=== PATIENT | female | born 1970 | race African-American/Black ===

== ENCOUNTER 2017-12-26 18:12 | Emergency (ER) | payer OTHER, MEDICAID ==
[2017-12-26] MEDS ORDERED: DEXAMETHASONE 10 MG/ML VIAL PO STA (19:07)
[2017-12-26] MEDS ORDERED: MELOXICAM 7.5 MG TABLET PO STA (19:07)
--- NOTE | 2017-12-26 19:13 | ED Physician Documentation ---
History of Present Illness - Stated complaint Stated Complaint: R ARM PAIN - Chief complaint Chief Complaint: Ext Problem - History obtained from History obtained from: Patient - History of Present Illness Timing: Other (1 month) Pain level max: 7 Pain level now: 5 Improved by: rest Worsened by: using the arm - Additonal information Additional information: Patient is a 47-year-old right-handed female who presents to the emergency department with right elbow pain for the past month or so. Has been trying physical therapy tape for this without relief. Occasionally shoots down to the hand and has trouble gripping objects. 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 Has not taken anything for the pain. 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 - Past Surgical History Past Surgical History: Yes /DOCUMENT MANAGER: section - Present Medications Home Medications: Ambulatory Orders Medication Instructions Recorded Confirmed Meloxicam [Mobic] 15 mg PO DAILY PRN #20 tablet 12/26/17 - Allergies Allergies/Adverse Reactions: Allergies Allergy/AdvReac Type Severity Reaction Status Date / Time No Known Drug Allergies Allergy Verified 12/26/17 18:21 - Social History Does the pt smoke?: No Smoking Status: Never smoker Does the pt drink ETOH?: Yes Does the pt have substance abuse?: No PD ED PE NORMAL - Vitals Vital signs reviewed: Yes - General General: Alert and oriented X 3, No acute distress - Derm Derm: Warm and dry - Extremities Extremities: Other (Right elbow - Tender to palpation over the lateral condyle of the right elbow. No swelling. No erythema. Full range of motion present. Neurovascularly intact.) - Neuro Neuro: Alert and oriented X 3, No motor deficit, No sensory deficit Results - Vitals Vitals: Oxygen O2 Source Room air PD MEDICAL DECISION MAKING - ED course Complexity details: considered differential, d/w patient ED course: Patient is a 47-year-old female who presents to the emergency department with a history and physical exam consistent with lateral epicondylitis. We will treat her conservatively and have her follow-up with her doctor for further care. I will and I paperwork filled out. Patient counseled regarding signs and symptoms for which I believe and urgent re-evaluation would be necessary. Patient with good understanding of and agreement to plan and is comfortable going home at this time This document was made in part using voice recognition software. While efforts are made to proofread this document, sound alike and grammatical errors may occur. Departure - Departure Disposition: 01 Home, Self Care Clinical Impression: Epicondylitis, lateral Qualifiers: Laterality: right Qualified Code(s): M77.11 - Lateral epicondylitis, right elbow Condition: Good Instructions: ED Epicondylitis Lateral Elbow Follow-Up: Arianna Dietz ARNP [Primary Care Provider] - Within 1 week Prescriptions: Meloxicam [Mobic] 15 mg PO DAILY PRN #20 tablet PRN Reason: pain Comments: Return if you worsen. This should improve over the next week. You may need physical therapy for this as well. Forms: Activity restrictions Discharge Date/Time: 12/26/17 19:25
[2017-12-26 19:24] VITALS: BP 132/88
== END 2017-12-26 19:25 | disposition home or self-care (01) ==
LOC: ED 18:12
DX: M77.11 Lateral epicondylitis, right elbow (principal)
CPT/HCPCS: 99283; A9270

== ENCOUNTER 2019-10-25 09:05 | Outpatient (CLI) | payer MEDICAID, OTHER ==
[2019-10-25 12:26] LABS: BASOPHILS % (AUTO) 0.7 %; EOSINOPHILS % (AUTO) 0.9 %; LYMPHOCYTES # (AUTO) 1.2 10^3/uL (1.5-3.5); LYMPHOCYTES % (AUTO) 27.8 %; MEAN CORPUSCULAR HEMOGLOBIN 17.9 pg (27.0-31.0); MEAN CORPUSCULAR HGB CONC 26.1 g/dL (32.0-36.0); MEAN CORPUSCULAR VOLUME 68.7 fL (81.0-99.0); MONOCYTES # (AUTO) 0.4 10^3/uL (0.0-1.0); MONOCYTES % (AUTO) 8.4 %; NEUTROPHILS # (AUTO) 2.7 10^3/uL (1.5-6.6); PLT - PLATELET COUNT 276 10^3/uL (130-450); RED BLOOD COUNT 3.51 10^6/uL (4.20-5.40); RED CELL DISTRIBUTION WIDTH 18.8 % (12.0-15.0); WHITE BLOOD COUNT 4.3 x10^3/uL (4.8-10.8)
[2019-10-25 12:36] LABS: HB2 TOTAL 6.6 g/dL; HEMOGLOBIN A1C 0.33 g/dL; HEMOGLOBIN A1C % 6.7 % (4.6-6.2)
[2019-10-25 12:42] LABS: ALBUMIN 4.2 g/dL (3.2-5.5); ALBUMIN/GLOBULIN RATIO 1.2 (1.0-2.2); ALKALINE PHOSPHATASE 67 IU/L (42-121); ALT ALANINE AMINOTRANSFERASE 27 IU/L (10-60); AST ASPARTATE AMINOTRANSFERASE 25 IU/L (10-42); BILIRUBIN,TOTAL 0.5 mg/dL (0.2-1.0); BUN - BLOOD UREA NITROGEN 11 mg/dL (6-20); CALCIUM 9.1 mg/dL (8.5-10.3); CARBON DIOXIDE - CO2 23 mmol/L (21-32); CHLORIDE 107 mmol/L (101-111); CHOL/HDL RATIO 1.6 (<4.4); CHOLESTEROL 124 mg/dL; CREATININE 0.5 mg/dL (0.4-1.0); GFR - MDRD 158 (>89); GLUCOSE 87 mg/dL (70-100); HDL CHOLESTEROL 77 mg/dL; LDL CHOLESTEROL,CALCULATED 38 mg/dL; LDL/HDL RATIO 0.5 (<4.4); SODIUM 139 mmol/L (135-145); TOTAL PROTEIN 7.6 g/dL (6.7-8.2); VLDL CHOLESTEROL 9 mg/dL
[2019-10-25 12:54] LABS: HGB - HEMOGLOBIN 6.3 g/dL (12.0-16.0); RBC MORPHOLOGY (MULTIPLE) 3+ ANISOCYTOSIS (NORMAL)
== END 2019-10-25 23:59 | disposition home or self-care (01) ==
LOC: LAB.N 09:05
PROVIDERS: ATTEND Family Medicine
DX: Z00.00 Encounter for general adult medical examination without abnormal findings (principal)
CPT/HCPCS: 36415; 80053; 80061; 83036; 83721; 84443; 85025

== ENCOUNTER 2019-10-25 13:41 | Emergency (ER) | payer MEDICAID, OTHER ==
[2019-10-25 14:45] LABS: BASOPHILS % (AUTO) 0.4 %; EOSINOPHILS # (AUTO) 0.1 10^3/uL (0.0-0.7); EOSINOPHILS % (AUTO) 1.1 %; LYMPHOCYTES # (AUTO) 1.4 10^3/uL (1.5-3.5); MEAN CORPUSCULAR HEMOGLOBIN 17.9 pg (27.0-31.0); MEAN CORPUSCULAR HGB CONC 26.6 g/dL (32.0-36.0); MEAN CORPUSCULAR VOLUME 67.5 fL (81.0-99.0); MEAN PLATELET VOLUME 10.2 fL (7.9-10.8); MONOCYTES # (AUTO) 0.4 10^3/uL (0.0-1.0); MONOCYTES % (AUTO) 9.3 %; NEUTROPHILS # (AUTO) 2.7 10^3/uL (1.5-6.6); PLT - PLATELET COUNT 252 10^3/uL (130-450); RED BLOOD COUNT 3.51 10^6/uL (4.20-5.40); RED CELL DISTRIBUTION WIDTH 18.7 % (12.0-15.0); WHITE BLOOD COUNT 4.5 x10^3/uL (4.8-10.8)
[2019-10-25 14:49] LABS: HGB - HEMOGLOBIN 6.3 g/dL (12.0-16.0)
[2019-10-25 14:51] LABS: INR 1.2 (0.8-1.2); PT - PROTHROMBIN TIME 13.4 secs (9.9-12.6)
[2019-10-25 15:04] LABS: ALBUMIN 4.2 g/dL (3.2-5.5); ALBUMIN/GLOBULIN RATIO 1.2 (1.0-2.2); BILIRUBIN,TOTAL 0.6 mg/dL (0.2-1.0); CALCIUM 9.2 mg/dL (8.5-10.3); CREATININE 0.6 mg/dL (0.4-1.0); TOTAL PROTEIN 7.8 g/dL (6.7-8.2)
[2019-10-25 15:09] LABS: BILIRUBIN,URINE NEGATIVE (NEGATIVE); GLUCOSE, URINE (UA) NEGATIVE (NEGATIVE); KETONES,URINE (UA) NEGATIVE (NEGATIVE); LEUKOCYTE ESTERASE, URINE NEGATIVE (NEGATIVE); NITRITE,URINE NEGATIVE (NEGATIVE); OCCULT BLOOD,URINE NEGATIVE (NEGATIVE); PROTEIN,URINE NEGATIVE (NEGATIVE); UROBILINOGEN,URINE 0.2 (NORMAL) E.U./dL (NORMAL)
[2019-10-25 15:18] LABS: CLARITY,URINE CLEAR (CLEAR)
--- NOTE | 2019-10-25 15:35 | ED Physician Documentation ---
History of Present Illness - Stated complaint Stated Complaint: ABNORMAL LABS - Chief complaint Chief Complaint: General - History obtained from History obtained from: Patient - History of Present Illness Timing: Unknown - Additonal information Additional information: Patient comes emergency department because her doctor told her her red blood cells were very low. She states she has not had any symptoms to indicate this. She states she has not been lightheaded, short of breath, or having chest pain. She states that she has not noticed a significant change in her color. Patient has been going through menopause for the past few years, and has had heavy, frequentPeriods. She states that she has tried eating red meat and previously has taken iron supplements. She also cooks on a cast iron skillet. She states that she has not had any laboratory studies done in about 3 years, until her physician took blood This week. She states she received a phone call this morning, stating that she needed to come to the emergency department. Patient denies any complaints at this time. No abdominal pain. No nausea or vomiting. She states that she did get quite constipated when she was on the red meat diet, and developed hemorrhoids which bled only a small bit. She states that after this cleared up, she did notice that she had some darker stoolsShe denies any history of ulcers or gastritis. No vomiting blood. Patient states that she has not had any menstrual bleeding, other than a small amount of brownish discharge, since last week. No other complaints at this time. She has never had to have a transfusion before. Review of Systems Ten Systems: 10 systems reviewed and negative Constitutional: reports: Reviewed and negative Eyes: reports: Reviewed and negative Ears: reports: Reviewed and negative Nose: reports: Reviewed and negative Throat: reports: Reviewed and negative Cardiac: reports: Reviewed and negative Respiratory: reports: Reviewed and negative GI: reports: Reviewed and negative : reports: Vaginal bleeding Skin: reports: Reviewed and negative Musculoskeletal: reports: Reviewed and negative Neurologic: reports: Reviewed and negative Psychiatric: reports: Reviewed and negative Endocrine: reports: Reviewed and negative Immunocompromised: reports: Reviewed and negative PD PAST MEDICAL HISTORY - Past Medical History Past Medical History: No Cardiovascular: None Respiratory: None 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 : None HEENT: None - Past Surgical History Past Surgical History: Yes /SALES REPRESENTATIVE TRAINEE: section - Present Medications Home Medications: Ambulatory Orders Medication Instructions Recorded Confirmed Meloxicam [Mobic] 15 mg PO DAILY PRN #20 tablet 12/26/17 - Allergies Allergies/Adverse Reactions: Allergies Allergy/AdvReac Type Severity Reaction Status Date / Time No Known Drug Allergies Allergy Verified 12/26/17 18:21 - Social History Does the pt smoke?: No Smoking Status: Never smoker Does the pt drink ETOH?: Yes Does the pt have substance abuse?: No PD ED PE NORMAL - Vitals Vital signs reviewed: Yes - General General: Alert and oriented X 3, No acute distress - HEENT HEENT: PERRL - Neck Neck: Supple, no meningeal sign - Cardiac Cardiac: RRR, No murmur - Respiratory Respiratory: Clear bilaterally - Abdomen Abdomen: Soft, Non tender, Non distended - Rectal Rectal: Other (Patient has good rectal tone. No gross blood in her rectal vault. Minimal stool is noted, but no melena.) - Derm Derm: Warm and dry - Extremities Extremities: No deformity - Neuro Neuro: Alert and oriented X 3 - Psych Psych: Normal mood, Normal affect Results - Vitals Vitals: Vital Signs - 24 hr 10/25/19 10/25/19 10/25/19 13:52 15:40 16:28 Temperature 36.8 C 37.1 C Heart Rate 92 73 74 Respiratory 16 16 18 Rate Blood Pressure 133/69 H 121/59 L 129/75 O2 Saturation 100 100 100 10/25/19 10/25/19 10/25/19 17:34 18:12 18:26 Temperature 37 C 36.8 C Heart Rate 64 71 72 Respiratory 18 18 16 Rate Blood Pressure 109/64 119/74 129/67 O2 Saturation 100 10/25/19 10/25/19 10/25/19 19:13 19:41 19:57 Temperature 37.2 C 37.3 C Heart Rate 64 71 77 Respiratory 18 16 16 Rate Blood Pressure 108/62 117/66 117/66 O2 Saturation 99 10/25/19 20:12 Temperature 37.2 C Heart Rate 74 Respiratory 16 Rate Blood Pressure 108/59 L O2 Saturation Oxygen O2 Source Room air - Labs Labs: Microbiology 10/25/19 18:20 Occult Blood - Final Stool Laboratory Tests 10/25/19 10/25/19 10/25/19 14:32 14:32 14:32 WBC 4.5 L RBC 3.51 L Hgb 6.3 L* Hct 23.7 L MCV 67.5 L MCH 17.9 L MCHC 26.6 L RDW 18.7 H Plt Count 252 MPV 10.2 Neut # (Auto) 2.7 Lymph # (Auto) 1.4 L [place] # (Auto) 0.4 Eos # (Auto) 0.1 Baso # (Auto) 0.0 Absolute Nucleated RBC 0.00 Nucleated RBC % 0.0 PT 13.4 H INR 1.2 Sodium Potassium Chloride Carbon Dioxide Anion Gap BUN Creatinine Estimated GFR (MDRD) Glucose Calcium Total Bilirubin AST ALT Alkaline Phosphatase Total Protein Albumin Globulin Albumin/Globulin Ratio Lipase Urine Color Urine Clarity Urine pH Ur Specific [place] Urine Protein Urine Glucose (UA) Urine Ketones Urine Occult Blood Urine Nitrite Urine Bilirubin Urine Urobilinogen Ur Leukocyte Esterase Ur Microscopic Review Urine Culture Comments Blood Type O POSITIVE Blood Type Recheck Antibody Screen NEGATIVE Crossmatch IS Only See Detail 10/25/19 10/25/19 10/25/19 14:32 14:50 15:43 WBC RBC Hgb Hct MCV MCH MCHC RDW Plt Count MPV Neut # (Auto) Lymph # (Auto) [place] # (Auto) Eos # (Auto) Baso # (Auto) Absolute Nucleated RBC Nucleated RBC % PT INR Sodium 136 Potassium 3.3 L Chloride 105 Carbon Dioxide 24 Anion Gap 7.0 BUN 11 Creatinine 0.6 Estimated GFR (MDRD) 128 Glucose 95 Calcium 9.2 Total Bilirubin 0.6 AST 22 ALT 27 Alkaline Phosphatase 65 Total Protein 7.8 Albumin 4.2 Globulin 3.6 Albumin/Globulin Ratio 1.2 Lipase 28 Urine Color YELLOW Urine Clarity CLEAR Urine pH 6.0 Ur Specific [place] 1.010 Urine Protein NEGATIVE Urine Glucose (UA) NEGATIVE Urine Ketones NEGATIVE Urine Occult Blood NEGATIVE Urine Nitrite NEGATIVE Urine Bilirubin NEGATIVE Urine Urobilinogen 0.2 (NORMAL) Ur Leukocyte Esterase NEGATIVE Ur Microscopic Review NOT INDICATED Urine Culture Comments NOT INDICATED Blood Type Blood Type Recheck O POSITIVE Antibody Screen Crossmatch IS Only PD MEDICAL DECISION MAKING - ED course Complexity details: reviewed old records, reviewed results, re-evaluated patient, considered differential, d/w patient, d/w family ED course: Patient was worked up with labs. IV was placed and transfusion was prepared, as patient's hemoglobin was found to be 6.3 in the emergency department.She was given 2 units of packed red blood cells in the emergency department. The patient remained hemodynamically stable, and had been asymptomatic throughout her stay in the emergency department. Furthermore, she was not currently bleeding. I did discuss with her the importance of following up with her CHILD LIFE THERAPIST to discuss further management of her menorrhagia and associated anemia. We have discussed home management of the symptoms, as well as usual indications for return Departure - Departure Disposition: 01 Home, Self Care Clinical Impression: Severe anemia Condition: Good Instructions: Anemia Comments: Your hemoglobin today was found to be 6.3 in the emergency department. For this, you have been given 2 units of packed red blood cells, which should bring your hemoglobin up to just over 10. It is very important that you follow-up with your CHILD LIFE THERAPIST to discuss options for your menorrhagia and anemia. Please continue to try to optimize your iron intake. Also, it is very important to stay fluid hydrated. If you begin to feel lightheaded or dizzy, or you develop chest pain or shortness of breath, please return to the emergency department immediately.
[2019-10-25 21:20] VITALS: BP 121/58
== END 2019-10-25 21:39 | disposition home or self-care (01) ==
LOC: ED 13:41
DX: Z00.00 Encounter for general adult medical examination without abnormal findings (principal); D64.9 Anemia, unspecified
CPT/HCPCS: 36415; 36430; 80053; 80061; 81003; 82272; 83036; 83690; 84443; 85025; 85610; 86850; 86900; 86901; 86920; 99284; 99285; P9016; 81001; 87086

== ENCOUNTER 2019-10-26 10:11 | Outpatient (CLI) | payer MEDICAID ==
--- NOTE | 2019-11-06 14:36 | Mammography Report ---
Reason: ROUTINE MAMMO Procedure Date: 10/26/2019 Accession Number: [id number] / [id number] Procedure: MGN - Screening Mammo w/Emilio CPT Code: Final Report FULL RESULT: EXAM: Screening Mammo w/Emilio DATE: 10/26/2019 10:44 AM CLINICAL HISTORY: Screening encounter. Family history of breast cancer in the mother at the age of 70. TECHNIQUE: (B) - Bilateral CC and MLO views were obtained. COMPARISON: None PARENCHYMAL PATTERN: (D) - The breast(s) demonstrate(s) heterogeneously dense fibroglandular parenchyma. FINDINGS: There are no suspicious masses, calcifications, or areas of distortion. IMPRESSION: Negative examination. BI-RADS category 1. RECOMMENDATION: (ANNUAL) - Recommend routine annual screening mammography. BI-RADS CATEGORY: (1) - Negative. STANDARD QUALIFYING STATEMENTS: 1. This examination was not reviewed with the aid of Computer-Aided Detection (CAD). 2. A negative or benign imaging report should not preclude biopsy if clinically suspicious findings are present. 3. Dense breasts may obscure an underlying neoplasm. 4. This examination was reviewed with the aid of 3D breast imaging (tomosynthesis).
== END 2019-10-26 10:12 | disposition home or self-care (01) ==
LOC: DI.N 10:11
DX: Z12.31 Encounter for screening mammogram for malignant neoplasm of breast (principal); Z80.3 Family history of malignant neoplasm of breast
CPT/HCPCS: 77063; 77067

== ENCOUNTER 2020-03-12 08:00 | Outpatient (CLI) | payer MEDICAID | END 2020-03-12 23:59 | disposition home or self-care (01) | LOC: LAB.R 08:00 | PROVIDERS: ATTEND Family Medicine | DX: J06.9 Acute upper respiratory infection, unspecified (principal) ==

== ENCOUNTER 2020-08-20 08:00 | Outpatient (CLI) | payer MEDICAID ==
[2020-08-20 11:55] LABS: BASOPHILS % (AUTO) 0.7 %; EOSINOPHILS # (AUTO) 0.1 10^3/uL (0.0-0.7); EOSINOPHILS % (AUTO) 2.2 %; LYMPHOCYTES # (AUTO) 1.4 10^3/uL (1.5-3.5); LYMPHOCYTES % (AUTO) 32.8 %; MEAN CORPUSCULAR HEMOGLOBIN 19.5 pg (27.0-31.0); MEAN CORPUSCULAR HGB CONC 26.3 g/dL (32.0-36.0); MEAN CORPUSCULAR VOLUME 74.3 fL (81.0-99.0); MEAN PLATELET VOLUME 11.5 fL (7.9-10.8); MONOCYTES # (AUTO) 0.3 10^3/uL (0.0-1.0); MONOCYTES % (AUTO) 7.3 %; NEUTROPHILS # (AUTO) 2.3 10^3/uL (1.5-6.6); NEUTROPHILS % (AUTO) 56.8 %; PLT - PLATELET COUNT 331 10^3/uL (130-450); RED BLOOD COUNT 3.38 10^6/uL (4.20-5.40); RED CELL DISTRIBUTION WIDTH 16.9 % (12.0-15.0); WHITE BLOOD COUNT 4.1 x10^3/uL (4.8-10.8)
[2020-08-20 12:06] LABS: HGB - HEMOGLOBIN 6.6 g/dL (12.0-16.0)
[2020-08-20 12:27] LABS: PLATELET ESTIMATE, MANUAL NORMAL (130-450,000) (NORMAL); PLATELET MORPHOLOGY NORMAL APPEARANCE (NORMAL)
[2020-08-20 12:34] LABS: CALCIUM 9.4 mg/dL (8.5-10.3); CREATININE 0.6 mg/dL (0.4-1.0)
== END 2020-08-20 23:59 | disposition home or self-care (01) ==
LOC: LAB.N 08:00
PROVIDERS: ATTEND Physician Assistant Medical
DX: R53.83 Other fatigue (principal)
CPT/HCPCS: 36415; 80048; 84443; 85025

== ENCOUNTER 2020-08-20 08:00 | Outpatient (CLI) | payer MEDICAID | END 2020-08-20 23:59 | disposition home or self-care (01) | LOC: LAB.N 08:00 | PROVIDERS: ATTEND Physician Assistant Medical | DX: R53.83 Other fatigue (principal); R07.0 Pain in throat; Z20.828 Contact with and (suspected) exposure to other viral communicable diseases ==

== ENCOUNTER 2020-08-20 09:00 | Outpatient (CLI) | payer MEDICAID | END 2020-08-20 23:59 | disposition home or self-care (01) | LOC: LAB.R 09:00 | PROVIDERS: ATTEND Physician Assistant Medical | DX: R53.83 Other fatigue (principal); R07.0 Pain in throat | CPT/HCPCS: 87070 ==

== ENCOUNTER 2020-08-20 12:56 | Emergency (ER) | payer MEDICAID ==
--- NOTE | 2020-08-20 14:22 | ED Physician Documentation ---
History of Present Illness - Stated complaint Stated Complaint: INFUSION/COVID EXPOSURE - Chief complaint Chief Complaint: Abd Pain - Additonal information Additional information: 50-year-old female sent to the emergency department by her primary care provider to receive a packed red blood cell infusion. She reports that she has a history of a uterine fibroid and has been bleeding now for 28 days. On average she is using 6-7 pads or tampons a day. Over the last 2 weeks she endorses feeling faint and lightheaded with occasional palpitations after exertion. She has in the past declined hormone therapy for her dysfunctional uterine bleeding as she is afraid of cancer risk. She is a non-smoker. 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 She was told recently that some gas had tested positive for COVID-19. She did have a COVID-19 screening as an outpatient at the clinic this morning. Results are pending. Review of Systems Constitutional: reports: Reviewed and negative Eyes: reports: Reviewed and negative Ears: reports: Reviewed and negative Nose: reports: Reviewed and negative Throat: reports: Reviewed and negative Cardiac: reports: Palpitations. denies: Chest pain / pressure, Pedal edema, Calf pain Respiratory: denies: Dyspnea, Cough GI: denies: Abdominal Pain, Nausea, Vomiting : reports: Vaginal bleeding (28 days). 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 : None HEENT: None - Past Surgical History Past Surgical History: Yes /CORK GRINDER: section - Present Medications Home Medications: Ambulatory Orders Medication Instructions Recorded Confirmed Meloxicam [Mobic] 15 mg PO DAILY PRN #20 tablet 12/26/17 - Allergies Allergies/Adverse Reactions: Allergies Allergy/AdvReac Type Severity Reaction Status Date / Time No Known Drug Allergies Allergy Verified 08/20/20 13:09 - Social History Does the pt smoke?: No Smoking Status: Never smoker Does the pt drink ETOH?: Yes Does the pt have substance abuse?: No - Immunizations Immunizations are current?: No - POLST Patient has POLST: No PD ED PE EXPANDED - General General: Alert, No acute distress, Well developed/nourished - Cardiac Cardiac: Regular Rate, Regular Rhythm, Radial strong equal, Pedal strong equal, Cap refill < 2 sec. No: Murmur Present - Respiratory Respiratory: Clear to ausultation joshua. No: Distress, Labored - Abdomen Abdomen: Normal Bowel sounds. No: Tender to palpation - Derm Derm: Normal color. No: Pale, Rash - Extremities Extremities: Normal. No: Deformity, Tenderness - Neuro Neuro: Alert and Oriented X 3, CNII-XII intact - GCS Eye Opening: Spontaneous Motor: Obeys Commands Verbal: Oriented Total: 15 Results - Vitals Vitals: Vital Signs - 24 hr 08/20/20 08/20/20 08/20/20 13:09 15:12 15:56 Temperature 37 C 36.7 C Heart Rate 90 74 76 Respiratory 18 13 17 Rate Blood Pressure 134/64 H 138/71 H 145/83 H O2 Saturation 100 99 08/20/20 08/20/20 08/20/20 16:01 16:37 17:20 Temperature 36.7 C 36.4 C L Heart Rate 71 79 70 Respiratory 13 14 16 Rate Blood Pressure 136/74 H 122/79 119/75 O2 Saturation 100 08/20/20 08/20/20 18:37 18:54 Temperature 37.1 C 36.9 C Heart Rate 69 99 Respiratory 18 15 Rate Blood Pressure 117/76 O2 Saturation Oxygen O2 Source Room air - Labs Labs: Laboratory Tests 08/20/20 08/20/20 08/20/20 14:17 14:17 14:17 WBC 4.5 L RBC 3.34 L Hgb 6.5 L* Hct 24.6 L MCV 73.7 L MCH 19.5 L MCHC 26.4 L RDW 16.9 H Plt Count 360 MPV 11.2 H Neut # (Auto) 2.6 Lymph # (Auto) 1.5 [place] # (Auto) 0.4 Eos # (Auto) 0.1 Baso # (Auto) 0.0 Absolute Nucleated RBC 0.00 Nucleated RBC % 0.0 Sodium 137 Potassium 4.1 Chloride 105 Carbon Dioxide 26 Anion Gap 6.0 BUN 12 Creatinine 0.6 Estimated GFR (MDRD) 128 Glucose 88 Calcium 9.6 Total Bilirubin 0.3 AST 17 ALT 19 Alkaline Phosphatase 83 Total Protein 7.2 Albumin 4.2 Globulin 3.0 Albumin/Globulin Ratio 1.4 Lipase 29 Serum HCG, Qual Blood Type O POSITIVE Antibody Screen NEGATIVE Crossmatch IS Only See Detail 08/20/20 14:17 WBC RBC Hgb Hct MCV MCH MCHC RDW Plt Count MPV Neut # (Auto) Lymph # (Auto) [place] # (Auto) Eos # (Auto) Baso # (Auto) Absolute Nucleated RBC Nucleated RBC % Sodium Potassium Chloride Carbon Dioxide Anion Gap BUN Creatinine Estimated GFR (MDRD) Glucose Calcium Total Bilirubin AST ALT Alkaline Phosphatase Total Protein Albumin Globulin Albumin/Globulin Ratio Lipase Serum HCG, Qual NEGATIVE Blood Type Antibody Screen Crossmatch IS Only - Rads (name of study) pelvic US Radiology: Final report received (Normal-appearing uterus except for presence of 2 moderately large fibroids. The largest fibroid measures up to 5 cm. The right ovary appears normal but the left ovary could not be seen due to bowel gas.), Other PD MEDICAL DECISION MAKING - ED course Complexity details: reviewed results, re-evaluated patient, considered differential, d/w patient ED course: 50-year-old female presents the emergency department for a blood transfusion on the advice of her primary care provider. She does have a history of bleeding fibroids and was seen in this ER for similar in September 2019. Unfortunately she has not yet followed up with [facility]. A pelvic ultrasound today does show 2 large fibroids, likely the source of her bleeding. I did discuss with the patient possible hormone therapy to be initiated here in the emergency department but she declined. Her hemoglobin is noted to be 6.5. She was given 2 units of PRBCs. Following this she was discharged from the emergency department. She did remain hemodynamically stable throughout her stay here. I have advised her to have very close follow-up with the OB department for further evaluation of these fibroids and to determine appropriate management. Departure - Departure Disposition: Home, Self Care Clinical Impression: DUB (dysfunctional uterine bleeding) Uterine fibroid Qualifiers: Uterine leiomyoma location: unspecified location Qualified Code(s): D25.9 - Leiomyoma of uterus, unspecified Anemia Qualifiers: Anemia type: unspecified type Qualified Code(s): D64.9 - Anemia, unspecified Condition: Stable Record reviewed to determine appropriate education?: Yes Instructions: ED Fibroids Follow-Up: [facility] [Provider Group] Comments: You were seen in the emergency department today for prolonged vaginal bleeding and anemia. You were given 2 units of packed red blood cells. The pelvic ultrasound does show that you have 2 large fibroids in your uterus. This is most likely the cause of your prolonged bleeding. I would like you to call the OB department tomorrow to discuss this ED visit. Please arrange follow-up with then senior net application developer as soon as possible. Long-term treatment of your fibroids can include hormone therapy or sometimes a discussion of surgery. If at any point you have severe vaginal bleeding, feel that you are developing faintness or weakness again, have heart rate greater than 120 at rest or feel that your symptoms are not improving please return immediately to the emergency department
[2020-08-20 14:37] LABS: BASOPHILS % (AUTO) 0.9 %; EOSINOPHILS # (AUTO) 0.1 10^3/uL (0.0-0.7); EOSINOPHILS % (AUTO) 1.3 %; LYMPHOCYTES # (AUTO) 1.5 10^3/uL (1.5-3.5); LYMPHOCYTES % (AUTO) 32.2 %; MEAN CORPUSCULAR HEMOGLOBIN 19.5 pg (27.0-31.0); MEAN CORPUSCULAR HGB CONC 26.4 g/dL (32.0-36.0); MEAN CORPUSCULAR VOLUME 73.7 fL (81.0-99.0); MEAN PLATELET VOLUME 11.2 fL (7.9-10.8); MONOCYTES # (AUTO) 0.4 10^3/uL (0.0-1.0); MONOCYTES % (AUTO) 8.4 %; NEUTROPHILS # (AUTO) 2.6 10^3/uL (1.5-6.6); PLT - PLATELET COUNT 360 10^3/uL (130-450); RED BLOOD COUNT 3.34 10^6/uL (4.20-5.40); RED CELL DISTRIBUTION WIDTH 16.9 % (12.0-15.0); WHITE BLOOD COUNT 4.5 x10^3/uL (4.8-10.8)
[2020-08-20 14:39] LABS: HGB - HEMOGLOBIN 6.5 g/dL (12.0-16.0)
[2020-08-20 14:50] LABS: ALBUMIN 4.2 g/dL (3.2-5.5); ALBUMIN/GLOBULIN RATIO 1.4 (1.0-2.2); BILIRUBIN,TOTAL 0.3 mg/dL (0.2-1.0); CALCIUM 9.6 mg/dL (8.5-10.3); CREATININE 0.6 mg/dL (0.4-1.0); TOTAL PROTEIN 7.2 g/dL (6.7-8.2)
[2020-08-20 14:58] LABS: HCG,QUALITATIVE BLOOD NEGATIVE
--- NOTE | 2020-08-20 15:50 | Ultrasound Report ---
PROCEDURE: Pelvic w/Transvaginal INDICATIONS: ? bleeding fibroid; 28 days TECHNIQUE: Real-time scanning was performed of the pelvic organs, with image documentation. Additional endovagi nal scanning was necessary due to incomplete visualization of the adnexal and endometrial structures by transabdominal scanning. COMPARISON: None. FINDINGS: Transabdominal scanning: Limited scanning through the kidneys shows no hydronephrosis. No pathologi c free abdominal or pelvic fluid. Endovaginal scanning: Uterus: Uterus is normal in size at 6.8 x 8.0 x 10.1 cm. The endometrium measures 10.0 mm in combin ed thickness. Scattered uterine fibroids appear present, on the right anteriorly measuring up to 4.1 x 3.9 x 3.6 cm, within the intramural space. A left-sided posterior intramural fibroid measures up t o 4.7 x 4.1 x 5.1 cm. Several scattered nabothian cysts are noted. Ovaries: The right ovary measures 2.7 x 1.7 x 2.5 cm and the left ovary is not seen due to overlying bowel gas. IMPRESSION: Normal-appearing uterus except for presence of 2 moderately large fibroids. The largest fibroid measu res up to 5.1 cm. The right ovary appears normal but the left ovary could not be seen due to bowel ga s. Reviewed by: Kevin Santos MD on 08/20/2020 3:49 PM PST Approved by: Kevin Santos MD on 08/20/2020 3:49 PM PST Station ID: [id number]
[2020-08-20 20:30] VITALS: BP 127/80
== END 2020-08-20 20:30 | disposition home or self-care (01) ==
LOC: ED 12:56
DX: N93.8 Other specified abnormal uterine and vaginal bleeding (principal); D25.1 Intramural leiomyoma of uterus; D64.9 Anemia, unspecified
CPT/HCPCS: 36415; 36430; 76830; 76856; 80053; 83690; 84703; 85025; 86850; 86900; 86901; 86920; 99284; 99285; P9016

== ENCOUNTER 2020-08-27 10:59 | Outpatient (CLI) | payer MEDICAID ==
[2020-08-27 18:01] LABS: BASOPHILS % (AUTO) 0.5 %; EOSINOPHILS # (AUTO) 0.1 10^3/uL (0.0-0.7); EOSINOPHILS % (AUTO) 1.6 %; HCT - HEMATOCRIT 29.9 % (37.0-47.0); HGB - HEMOGLOBIN 8.5 g/dL (12.0-16.0); LYMPHOCYTES # (AUTO) 0.9 10^3/uL (1.5-3.5); LYMPHOCYTES % (AUTO) 23.8 %; MEAN CORPUSCULAR HEMOGLOBIN 22.8 pg (27.0-31.0); MEAN CORPUSCULAR HGB CONC 28.4 g/dL (32.0-36.0); MEAN CORPUSCULAR VOLUME 80.2 fL (81.0-99.0); MONOCYTES # (AUTO) 0.3 10^3/uL (0.0-1.0); MONOCYTES % (AUTO) 6.5 %; NEUTROPHILS # (AUTO) 2.6 10^3/uL (1.5-6.6); NEUTROPHILS % (AUTO) 67.6 %; PLT - PLATELET COUNT 231 10^3/uL (130-450); RED BLOOD COUNT 3.73 10^6/uL (4.20-5.40); RED CELL DISTRIBUTION WIDTH 20.4 % (12.0-15.0); WHITE BLOOD COUNT 3.9 x10^3/uL (4.8-10.8)
[2020-08-27 18:06] LABS: SLIDE REVIEW? Indicated
[2020-08-27 18:20] LABS: % IRON SATURATION 4 % (20-50); CHOLESTEROL 130 mg/dL; HDL CHOLESTEROL 64 mg/dL; IRON 20 ug/dL (28-170); LDL CHOLESTEROL,CALCULATED 51 mg/dL; LDL/HDL RATIO 0.8 (<4.4); TOTAL IRON BINDING CAPACITY 466 ug/dL (250-450); TRANSFERRIN 333 mg/dL (192-382); TRIGLYCERIDES 76 mg/dL; VLDL CHOLESTEROL 15 mg/dL
[2020-08-27 18:28] LABS: PLATELET ESTIMATE, MANUAL NORMAL (130-450,000) (NORMAL)
[2020-08-27 18:33] LABS: FERRITIN 4.5 ng/mL (11.0-306.8)
[2020-08-27 18:37] LABS: FOLATE 13.78 ng/mL (5.90 - >24.8)
== END 2020-08-27 23:59 | disposition home or self-care (01) ==
LOC: LAB.WCP 10:59
PROVIDERS: ATTEND Physician Assistant Medical
DX: Z00.00 Encounter for general adult medical examination without abnormal findings (principal); D50.8 Other iron deficiency anemias; N93.9 Abnormal uterine and vaginal bleeding, unspecified
CPT/HCPCS: 36415; 80061; 82607; 82728; 82746; 83540; 83721; 84466; 84702; 85025

== ENCOUNTER 2021-11-20 08:04 | Emergency (ER) | payer MEDICAID ==
--- NOTE | 2021-11-20 08:19 | ED Physician Documentation ---
PD HPI DYSPNEA - Stated complaint Stated Complaint: SENT FOR TRANSFUSION - Chief complaint Chief Complaint: Abd Pain - History obtained from History obtained from: Patient - History of Present Illness Timing - onset: How many weeks ago (Has had heavier vaginal bleeding for 3 weeks with a pad every few hours for the past several days to a week. history of anemia chronic and is on iron supplement.) Timing - onset during: Other (some lightheaded today, but also started SSRI last night. Otherwise noting general fatigue the past few weeks. Seen in Clinic yesterday in [place] and called this morning to come to ER as blood count very low.) Timing - details: Gradual onset, Still present Inciting event(s): Other (prolonged vaginal bleeding. states has not seen SHEET METAL INSULATOR for couple of years due to pandemic and office restrictions/insurance.) Improved by: Rest Worsened by: Exertion (lightheaded and fatigue with activity.) Associated symptoms: No: Fever, Cough, Wheezing Similar symptoms before: Diagnosis (vag bleeding and anemia due to fibroid.) Recently seen: Clinic Review of Systems Constitutional: denies: Fever, Chills Nose: denies: Rhinorrhea / runny nose, Congestion Throat: denies: Sore throat Respiratory: denies: Cough GI: reports: Abdominal Pain (intermittent cramping uterus area.). denies: Nausea, Vomiting, Bloody / black stool : reports: Vaginal bleeding, Irregular menses Neurologic: reports: Generalized weakness. 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 At the time SHEET METAL INSULATOR was deferring laparoscopic surgery. She had been on some oral contraceptive short-term with some improvement. irregular and heavy periods chronically. ) : None HEENT: None Other Past Medical History: chronic anemia, appears iron deficiency on prior labs, due to irregular menses detention. - Past Surgical History Past Surgical History: Yes /SHEET METAL INSULATOR: section - Present Medications Home Medications: Ambulatory Orders Medication Instructions Recorded Confirmed Meloxicam [Mobic] 15 mg PO DAILY PRN #20 tablet 12/26/17 Ferrous Gluconate 324 mg PO BID #60 tablet 11/20/21 Norethindrone Acetate 10 mg PO DAILY 5 Days #10 tablet 11/20/21 Tranexamic Acid 1,300 mg PO TID 5 Days #30 tablet 11/20/21 - Allergies Allergies/Adverse Reactions: Allergies Allergy/AdvReac Type Severity Reaction Status Date / Time acetaminophen [From Percocet] Allergy Respiratory Verified 11/20/21 08:13 latex Allergy Respiratory Verified 11/20/21 08:13 oxycodone Allergy Respiratory Verified 11/20/21 08:13 - Social History Does the pt smoke?: No Smoking Status: Never smoker Does the pt drink ETOH?: Yes Does the pt have substance abuse?: No - Immunizations Immunizations are current?: No - POLST Patient has POLST: No PD ED PE NORMAL - Vitals Vital signs reviewed: Yes - General General: Alert and oriented X 3, No acute distress, Well developed/nourished - HEENT HEENT: Other (modertely pale mucosa) - Neck Neck: Supple, no meningeal sign, No adenopathy - Cardiac Cardiac: RRR, No murmur - Respiratory Respiratory: Clear bilaterally - Abdomen Abdomen: Normal bowel sounds, Soft, Non tender, Non distended, No organomegaly - Female Female : Deferred - Rectal Rectal: Deferred - Back Back: No CVA TTP - Derm Derm: Normal color, Warm and dry - Extremities Extremities: No deformity, No edema - Neuro Neuro: Alert and oriented X 3, No motor deficit, Normal speech Results - Vitals Vitals: Vital Signs - 24 hr 11/20/21 11/20/21 11/20/21 08:07 08:34 10:12 Temperature 36.2 C L 36.6 C Heart Rate 96 80 80 Respiratory 16 16 16 Rate Blood Pressure 145/66 H 127/77 132/80 H O2 Saturation 99 99 98 11/20/21 11/20/21 11/20/21 10:40 10:45 10:55 Temperature 36.6 C 36.9 C 36.4 C L Heart Rate 80 74 75 Respiratory 16 14 16 Rate Blood Pressure 132/80 H 127/80 125/76 O2 Saturation 11/20/21 11/20/21 11/20/21 12:00 13:12 14:00 Temperature 36.7 C 36.7 C 36.8 C Heart Rate 72 68 75 Respiratory 14 16 16 Rate Blood Pressure 128/80 129/74 145/80 H O2 Saturation 96 100 Oxygen O2 Source Room air - Labs Labs: Laboratory Tests 11/20/21 11/20/21 11/20/21 08:24 08:24 08:24 WBC 6.4 RBC 2.54 L Hgb 5.9 L* Hct 21.4 L MCV 84.3 MCH 23.2 L MCHC 27.6 L RDW 29.3 H Plt Count 320 MPV 11.6 H Neut # (Auto) 4.5 Lymph # (Auto) 1.[address] [place] # (Auto) 0.4 Eos # (Auto) 0.1 Baso # (Auto) 0.0 Absolute Nucleated RBC 0.04 Nucleated RBC % 0.6 Manual Slide Review Indicated Platelet Estimate NORMAL (130-450,000) Platelet Morphology NORMAL APPEARANCE RBC Morph Micro Appear 3+ ANISOCYTOSIS Sodium 138 Potassium 3.6 Chloride 102 Carbon Dioxide 24 Anion Gap 12.0 BUN 11 Creatinine 0.7 Estimated GFR (MDRD) 107 Glucose 100 Calcium 8.6 Iron 19 L TIBC 462 H % Saturation 4 L Transferrin 330 Total Bilirubin 0.4 AST 17 ALT 14 Alkaline Phosphatase 60 Total Protein 7.0 Albumin 4.0 Globulin 3.0 Albumin/Globulin Ratio 1.3 Lipase 28 Vitamin B12 Folate Blood Type O POSITIVE Antibody Screen NEGATIVE Crossmatch IS Only See Detail 11/20/21 11/20/21 08:24 13:33 WBC RBC Hgb 7.4 L Hct 25.5 L MCV MCH MCHC RDW Plt Count MPV Neut # (Auto) Lymph # (Auto) [place] # (Auto) Eos # (Auto) Baso # (Auto) Absolute Nucleated RBC Nucleated RBC % Manual Slide Review Platelet Estimate Platelet Morphology RBC Morph Micro Appear Sodium Potassium Chloride Carbon Dioxide Anion Gap BUN Creatinine Estimated GFR (MDRD) Glucose Calcium Iron TIBC % Saturation Transferrin Total Bilirubin AST ALT Alkaline Phosphatase Total Protein Albumin Globulin Albumin/Globulin Ratio Lipase Vitamin B12 633 Folate 13.11 Blood Type Antibody Screen Crossmatch IS Only - Rads (name of study) pelvic U/S Radiology: Prelim report reviewed (fibroids largest 6.2 cm, enlarged from prior exam. Right ovarian cyst. ), See rad report PD MEDICAL DECISION MAKING - ED course Complexity details: reviewed results (fibroids, without other structural abnormal. ), re-evaluated patient (Repeat blood count after 1 unit of blood is now 7.4 hemoglobin so is adequately elevated and does not need further transfusion.), considered differential (She is anemic from ongoing vaginal bleeding. Can give transfusion of 1 unit and recheck blood count per transfusion guidelines. Will give TXA and progesterone to help decrease bleeding.), d/w funeral pre need consultant (SHEET METAL INSULATOR on line csr, Alexandru, who suggested TXA, Norinthendrone, and follow up next week. ) Departure - Departure Disposition: 01 Home, Self Care Clinical Impression: Vaginal bleeding, Uterine fibroid Anemia Qualifiers: Anemia type: iron deficiency Iron deficiency anemia type: chronic blood loss Qualified Code(s): D50.0 - Iron deficiency anemia secondary to blood loss (chronic) Condition: Stable Record reviewed to determine appropriate education?: Yes Instructions: ED Bleed Irregular Vaginal Follow-Up: Billie Horvath DO [Provider Admit Priv/Credential] - Prescriptions: Ferrous Gluconate 324 mg PO BID #60 tablet Norethindrone Acetate 10 mg PO DAILY 5 Days #10 tablet Tranexamic Acid 1,300 mg PO TID 5 Days #30 tablet Comments: Your repeat blood count is now above 7 (now is 7.4). Continue with your iron supplements twice daily. I wrote a prescription for more. I did talk with the on-call gelatin powder mixer who wants to see you next week. Call today for an appointment and let them know you are seen in the ER and the gelatin powder mixer does want to see you for sure in the short-term follow-up. The gelatin powder mixer also recommended treatment with tranexamic acid 3 times daily for the next 5 days and no hormone norethindrone 10 mg daily for the next 5 days. Return to the ER if increased bleeding, general weakness or fevers, increased abdominal pain or other concerns. Otherwise follow-up with gynecology next week. I transmitted your prescription to [facility] in [place]. Discharge Date/Time: 11/20/21 14:43
[2021-11-20 08:44] LABS: BASOPHILS % (AUTO) 0.5 %; EOSINOPHILS # (AUTO) 0.1 10^3/uL (0.0-0.7); EOSINOPHILS % (AUTO) 1.9 %; HCT - HEMATOCRIT 21.4 % (37.0-47.0); LYMPHOCYTES # (AUTO) 1.3 10^3/uL (1.5-3.5); LYMPHOCYTES % (AUTO) 19.7 %; MEAN CORPUSCULAR HEMOGLOBIN 23.2 pg (27.0-31.0); MEAN CORPUSCULAR HGB CONC 27.6 g/dL (32.0-36.0); MEAN CORPUSCULAR VOLUME 84.3 fL (81.0-99.0); MEAN PLATELET VOLUME 11.6 fL (7.9-10.8); MONOCYTES # (AUTO) 0.4 10^3/uL (0.0-1.0); MONOCYTES % (AUTO) 6.4 %; NEUTROPHILS # (AUTO) 4.5 10^3/uL (1.5-6.6); NEUTROPHILS % (AUTO) 70.4 %; NRBC ABSOLUTE COUNT (AUTO) 0.04 x10^3/uL; NUCLEATED RED BLOOD CELLS AUTO 0.6 /100WBC; PLT - PLATELET COUNT 320 10^3/uL (130-450); RED BLOOD COUNT 2.54 10^6/uL (4.20-5.40); RED CELL DISTRIBUTION WIDTH 29.3 % (12.0-15.0); WHITE BLOOD COUNT 6.4 x10^3/uL (4.8-10.8)
[2021-11-20 08:47] LABS: HGB - HEMOGLOBIN 5.9 g/dL (12.0-16.0); SLIDE REVIEW? Indicated
[2021-11-20 09:05] LABS: ALBUMIN/GLOBULIN RATIO 1.3 (1.0-2.2); BILIRUBIN,TOTAL 0.4 mg/dL (0.2-1.0); CALCIUM 8.6 mg/dL (8.5-10.3); CREATININE 0.7 mg/dL (0.4-1.0); POTASSIUM 3.6 mmol/L (3.5-5.0)
[2021-11-20 09:10] LABS: PLATELET ESTIMATE, MANUAL NORMAL (130-450,000) (NORMAL); PLATELET MORPHOLOGY NORMAL APPEARANCE (NORMAL)
[2021-11-20 09:19] LABS: FOLATE 13.11 ng/mL (5.90 - >24.8)
[2021-11-20] MEDS: TRANEXAMIC ACID 1,000 MG in SODIUM CHLORIDE 0.9% 100ML 100 ML IV STA (09:50)
--- NOTE | 2021-11-20 10:21 | Ultrasound Report ---
PROCEDURE: Pelvic w/Transvag+Doppler Comp INDICATIONS: excess vag bleeding; h/o fibroid TECHNIQUE: Real-time scanning was performed of the pelvic organs, with image documentation. Additional endovagi nal scanning was necessary due to incomplete visualization of the adnexal and endometrial structures by transabdominal scanning. Doppler interrogation was performed of the ovaries bilaterally. COMPARISON: Pelvic ultrasound 08/20/2020. FINDINGS: No pathologic free abdominal or pelvic fluid. Uterus: Uterus is enlarged, measuring 13.9 x 7.3 x 2.8 cm. The uterus is anteverted with a coarsened echotexture due to the presence of multiple fibroids. The endometrium measures 9 mm in combined thic kness. A medial left posterior intramural and submucosal fibroid (approximately 25% submucosal) measu res 5.9 x 4.3 x 6.2 cm (previously 4.7 x 4.1 x 5.1 cm). A right anterior intramural fibroid measures 3.8 x 2.8 x 3.8 cm (previously 4.1 x 3.9 x 3.6 cm). Nabothian cysts are noted in the cervix. Ovaries: Right ovary measures 2.3 x 1.6 x 1.6 cm (3.1 cc). A simple cyst or dominant follicle measure s up to 1.6 cm in maximum dimension. The left ovary measures 2.8 x 1.4 x 1.7 cm (3.4 cc). Normal appe aring arterial and venous waveforms are confirmed to each ovary.] IMPRESSION: 1.Uterus is enlarged by multiple fibroids. 2.A posterior 6.2 cm intramural and submucosal fibroid has increased in size when compared to the ult rasound from 08/20/2020. 3.Right ovarian simple cyst or follicle measures 1.6 cm in maximum dimension trauma with may be akua l in premenopausal woman. Recommend correlation with menopausal status. Reviewed by: Jaret Lamb MD on 11/20/2021 9:20 AM JOSE Approved by: Jaret Lamb MD on 11/20/2021 9:20 AM JOSE Station ID: [id number]
[2021-11-20 13:39] LABS: HCT - HEMATOCRIT 25.5 % (37.0-47.0); HGB - HEMOGLOBIN 7.4 g/dL (12.0-16.0)
[2021-11-20 14:05] VITALS: BP 145/80
== END 2021-11-20 14:43 | disposition home or self-care (01) ==
LOC: ED 08:04
DX: D25.9 Leiomyoma of uterus, unspecified (principal); D50.0 Iron deficiency anemia secondary to blood loss (chronic)
CPT/HCPCS: 36415; 36430; 76830; 76856; 80053; 82607; 82746; 83540; 83690; 84466; 85014; 85018; 85025; 86850; 86900; 86901; 86920; 93975; 96365; 99284; 99285; A9270; P9016

== ENCOUNTER 2022-05-17 22:21 | Emergency (ER) | payer MEDICAID ==
--- NOTE | 2022-05-17 22:31 | ED Physician Documentation ---
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 Rash is diffuse on trunk (abdomen, chest, back) as well as BUE. Denies dyspnea, denies keely/intraoral swelling or sensation of constriction. Denies h/o similar symptoms. She had shrimp tonight for dinner shortly before the rash started, but has had shrimp many times before without problems. 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 : None HEENT: None - Past Surgical History Past Surgical History: Yes /DRUM PULLER: section - Present Medications Home Medications: Ambulatory Orders Medication Instructions Recorded Confirmed Meloxicam [Mobic] 15 mg PO DAILY PRN #20 tablet 12/26/17 Ferrous Gluconate 324 mg PO BID #60 tablet 11/20/21 Norethindrone Acetate 10 mg PO DAILY 5 Days #10 tablet 11/20/21 Tranexamic Acid 1,300 mg PO TID 5 Days #30 tablet 11/20/21 - Allergies Allergies/Adverse Reactions: Allergies Allergy/AdvReac Type Severity Reaction Status Date / Time acetaminophen [From Percocet] Allergy Respiratory Verified 05/17/22 22:29 latex Allergy Respiratory Verified 05/17/22 22:29 oxycodone Allergy Respiratory Verified 05/17/22 22:29 - Social History Does the pt smoke?: No Smoking Status: Never smoker Does the pt drink ETOH?: Yes Does the pt have substance abuse?: No - Immunizations Immunizations are current?: No - POLST Patient has POLST: No PD ED PE NORMAL - Vitals Vital signs reviewed: Yes - General General: Alert and oriented X 3, No acute distress, Well developed/nourished - HEENT HEENT: Pharynx benign (no perioral nor intraoral swelling (lips, tongue, posterior o/p)) - Respiratory Respiratory: No respiratory distress, Clear bilaterally PD ED PE EXPANDED - Derm Derm: Urticaria (diffuse over abdomen and back with confluence; more scattered lesions (without confluence) BUE, predominantly proximally. No rash on head/neck. Few scattered lesions proximal BLE) Results - Vitals Vitals: Vital Signs - 24 hr 05/17/22 23:49 Temperature 36.6 C Heart Rate 77 Respiratory 16 Rate Blood Pressure 149/87 H O2 Saturation 98 Oxygen O2 Source Room air PD MEDICAL DECISION MAKING - ED course Complexity details: re-evaluated patient, considered differential, d/w patient ED course: given 25mg IM diphenhydramine, 10mg PO decadron, and 20mg PO pepcid. On reevaluation, the rash has resolved. Patient is asymptomatic (except some drowsiness appropriate for the IM benadryl). Return precautions discussed. Departure - Departure Disposition: 01 Home, Self Care Clinical Impression: Allergic urticaria Condition: Good Instructions: ED Urticaria Comments: You were given benadryl, a one-time dose of steroid (decadron), and pepcid in the ER and your symptoms have resolved. If the symptoms (itchy rash) reoccurs, take benadryl as per label instructions. If the benadryl alone is ineffective in controlling your symptoms, or if you develop new concerning signs/symptoms (such as difficulty breathing, chest tightness/constriction, swelling of lips, tongue, throat), return to the emergency department for reevaluation. Discharge Date/Time: 05/17/22 23:53
[2022-05-17] MEDS ORDERED: diphenhydrAMINE INJ 50 MG/ML VIAL IM STA (22:36)
[2022-05-17] MEDS ORDERED: FAMOTIDINE 20 MG TABLET PO STA (22:53)
[2022-05-17] MEDS ORDERED: CHERRY SYRUP 10 ML UDC PO ONE (22:53)
[2022-05-17] MEDS ORDERED: DEXAMETHASONE 10 MG/ML VIAL PO STA (22:53)
[2022-05-17 23:50] VITALS: BP 149/87
== END 2022-05-17 23:53 | disposition home or self-care (01) ==
LOC: ED 22:21
DX: L50.9 Urticaria, unspecified (principal)
CPT/HCPCS: 96372; 99282; 99283; A9270; J1200

== ENCOUNTER 2023-01-10 13:34 | Outpatient (CLI) | payer MEDICAID ==
--- NOTE | 2023-01-10 15:36 | XRAY Report ---
PROCEDURE: Wrist 3 View RT INDICATIONS: DEQUERVAINS TENOSYNOVITIS TECHNIQUE: 3 views of the wrist were acquired. COMPARISON: None. FINDINGS: Bones: No displaced fracture. No dislocation. Nonaggressive appearing mild sclerosis at the distal ra dius. Soft tissues: No suspicious calcifications. IMPRESSION: No acute osseous abnormality. If there is high concern for further derangement, consider MRI or ultra sound evaluation for reported tendinous pathology. Reviewed by: Jam Gilliland MD on 01/10/2023 3:34 PM PDT Approved by: Jam Gilliland MD on 01/10/2023 3:34 PM PDT Station ID: [id number]
== END 2023-01-10 23:59 | disposition home or self-care (01) ==
LOC: DI.N 13:34
PROVIDERS: ATTEND Physician Assistant Medical
DX: M65.4 Radial styloid tenosynovitis [de Quervain] (principal)

== ENCOUNTER 2023-04-14 18:56 | Outpatient (CLI) | payer MEDICAID ==
--- NOTE | 2023-04-15 15:15 | XRAY Report ---
PROCEDURE: Toe(s) LT INDICATIONS: PAIN IN LEFT TOE(S) TECHNIQUE: 3 views of the 4th toe(s) acquired. COMPARISON: None. FINDINGS: The lateral view is suboptimal. Bones: No fractures or dislocations. No suspicious bony lesions. Soft tissues: No suspicious soft tissue densities. IMPRESSION: 1. No definitive abnormality. The lateral view is suboptimal. If clinical symptoms persist, consider a follow-up exam in 7-10 days. Reviewed by: Yoli Kim MD on 04/15/2023 3:13 PM PDT Approved by: Yoli Kim MD on 04/15/2023 3:13 PM PDT Station ID: [id number]
== END 2023-04-14 18:57 | disposition home or self-care (01) ==
LOC: DI 18:56
PROVIDERS: ATTEND Registered Nurse
DX: M79.675 Pain in left toe(s) (principal)
CPT/HCPCS: 73660

== ENCOUNTER 2023-11-20 20:16 | Emergency (ER) | payer MEDICAID ==
[2023-11-20 20:38] VITALS: BP 167/102; O2SAT 100
[2023-11-20] MEDS: predniSONE 20 MG TABLET PO STA (20:47)
--- NOTE | 2023-11-20 20:59 | ED Physician Documentation ---
History of Present Illness - Stated complaint Stated Complaint: POSS ALLERGIC REACTION - Chief complaint Chief Complaint: Allergic Rx - History obtained from History obtained from: Patient - History of Present Illness Timing: Today Pain level max: 0 Pain level now: 0 - Additonal information Additional information: Patient is a 53-year-old female who presents to the emergency department complaint of a allergic reaction to shrimp. She states that last time she ate shrimp she had allergic reaction causing lip tingling and swelling. She states that she was not sure if it was a true allergic reaction or not so she decided to try shrimp again today. After eating the shrimp her lips began to tingle and turn red. Took 50 mg of Benadryl prior to arrival. No difficulty speaking or swallowing. No difficulty breathing. No rash. Feels generally itchy, but states she is feeling better. Ingestion occurred about 90 minutes prior to arrival. No history of anaphylaxis. 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 : None HEENT: None - Past Surgical History Past Surgical History: Yes /BEVERAGE SALES CONSULTANT: section - Present Medications Home Medications: Ambulatory Orders Medication Instructions Recorded Confirmed EPINEPHrine [Epinephrine] 0.3 mg IJ ONCE PRN #1 each 11/20/23 predniSONE [Deltasone] 40 mg PO DAILY #10 tablet 11/20/23 - Allergies Allergies/Adverse Reactions: Allergies Allergy/AdvReac Type Severity Reaction Status Date / Time acetaminophen [From Percocet] Allergy Respiratory Verified 05/17/22 22:29 latex Allergy Respiratory Verified 05/17/22 22:29 oxycodone Allergy Respiratory Verified 05/17/22 22:29 shellfish derived Allergy Itching Verified 11/20/23 20:34 - Social History Does the pt smoke?: No Smoking Status: Never smoker Does the pt drink ETOH?: Yes Does the pt have substance abuse?: No - Immunizations Immunizations are current?: No - POLST Patient has POLST: No PD ED PE NORMAL - Vitals Vital signs reviewed: Yes - General General: Alert and oriented X 3, No acute distress - HEENT HEENT: PERRL, Moist mucous membranes, Pharynx benign, Other (Normal posterior oropharyngeal exam. No swelling. Normal phonation. No trismus. No stridor. No wheezing) - Neck Neck: Supple, no meningeal sign - Cardiac Cardiac: RRR, Strong equal pulses - Respiratory Respiratory: No respiratory distress, Clear bilaterally - Abdomen Abdomen: Soft, Non tender, Non distended - Derm Derm: Warm and dry, No rash - Neuro Neuro: Alert and oriented X 3 - Psych Psych: Normal mood, Normal affect Results - Vitals Vitals: Vital Signs - 24 hr 11/20/23 11/20/23 20:34 21:21 Temperature 36.6 C Heart Rate 81 74 Respiratory 18 Rate Blood Pressure 167/102 H O2 Saturation 100 100 Oxygen O2 Source Room air PD Medical Decision Making - ED course Complexity details: re-evaluated patient, considered differential, d/w patient ED course: 53-year-old female with what appears to be an allergic reaction to shellfish. Took Benadryl prior to arrival. Given prednisone here. Symptoms resolved in the emergency department. Will place her on steroids for the next few days. Will prescribe an EpiPen for home. Will have her follow-up with her doctor for further care. Patient counseled regarding signs and symptoms for which I believe and urgent re-evaluation would be necessary. Patient with good understanding of and agreement to plan and is comfortable going home at this time This document was made in part using voice recognition software. While efforts are made to proofread this document, sound alike and grammatical errors may occur. Departure - Departure Disposition: 01 Home, Self Care Clinical Impression: Allergic reaction Qualifiers: Encounter type: initial encounter Qualified Code(s): T78.40XA - Allergy, unspecified, initial encounter Condition: Good Instructions: ED Allergic Reaction General Other Follow-Up: Provider,Other [Primary Care Provider] - Within 1 week Prescriptions: predniSONE [Deltasone] 40 mg PO DAILY #10 tablet EPINEPHrine [Epinephrine] 0.3 mg IJ ONCE PRN #1 each PRN Reason: Anaphylaxis Comments: Your prescription was sent to [facility] in [place]. As we discussed, stay on the steroids for the next several days to help prevent any recurrent reaction. You can also take Zyrtec or Claritin daily for the next 3 days. I have prescribed you an epinephrine pen, if you have to use the epinephrine pen, you need to be seen in the emergency department right away. Please avoid any shellfish in the future. Please return if you worsen. Forms: PCP List Discharge Date/Time: 11/20/23 21:21
== END 2023-11-20 21:21 | disposition home or self-care (01) ==
LOC: ED 20:16
DX: T78.1XXA Other adverse food reactions, not elsewhere classified, initial encounter (principal); Y93.89 Activity, other specified
CPT/HCPCS: 99282; 99283; J7512